=== PATIENT | female | born 1960 | race Caucasian/White ===

== ENCOUNTER 2016-12-03 12:43 | Emergency (ER) | payer BC ==
[~2016-12-03] VITALS: Ht 170.2 cm; Wt 66.0 kg
[~2016-12-03 12:43] MED LIST: CLON0.5T3 PO; DTRSR4 PO; LAMO100T16 PO; LANS30CA63 PO; ONDA4TAB46 PO; SUMA25TA12 PO; TRAZ50TA35 PO; VENL75CA73 PO
[2016-12-03 12:49] VITALS: BP 158/76; TEMP 36.4; Ht 170.2 cm; Wt 66.0 kg
[2016-12-03 13:35] VITALS: PULSE 73; O2SAT 95
[2016-12-03] MEDS ORDERED: CARI1CAP PO (13:36)
--- NOTE | 2016-12-03 16:10 | EMERGENCY ROOM VISIT NOTE ---
History First contact with patient: 12:48 Chief Complaint: FALL Stated Complaint: FALL History of Present Illness The patient is a 56 year old female who presents to the Emergency Room with complaints of injuries after she tripped and fell onto This. The patient reports that she tripped on an uneven sidewalk. She reports falling face first , causing an abrasion to her nose and upper lip she denies any other orthopedic injuries, headache, neck pain, back pain, chest pain or abdominal pain. She denies any loss of consciousness, nausea, blurred vision or significant headache. Tetanus immunization is up-to-date. Review of Systems 10 system review was performed and was negative except for pertinent positives and negatives as indicated in history of present illness Past Medical/Surgical History Medical Problems: (1) Acid reflux (2) Depression (3) Headache (4) IBS (irritable bowel syndrome) (5) Kidney stone (6) Overactive bladder Family History FHx: heart disease Kidney stones Social History Smoking Status: Never Smoker Alcohol Use: none Marital Status: Housing Status: lives alone Occupation Status: employed Current/Historical Medications Scheduled Cariprazine HCl (Vraylar), 1.5 MG PO DAILY Scheduled PRN Clonazepam (Klonopin), 0.25 MG PO HS PRN for Sleep Trazodone Hcl (Trazodone), 25 MG PO HS PRN for Sleep Physical Exam Vital Signs Date Time Temp Pulse Resp B/P (MAP) Pulse Ox O2 Delivery O2 Flow Rate FiO2 12/03/16 13:35 73 16 95 12/03/16 12:49 36.4 85 16 158/76 97 Room Air Physical Exam CONSTITUTIONAL: Healthy and well nourished. Alert and oriented X 3 with a flat affect. GCS 15. HEENT: Examination shows small abrasions to the bridge of the nose and upper lip region. Pupils equal, round and reactive. No epistaxis, subconjunctival hemorrhage, hemotympanum, raccoon's eyes or Ernst sign. No tenderness to palpation of the facial bones. OROPHARYNX: No dental trauma or other intraoral lacerations noted. There is no upper lip wet mucosal laceration. NECK: Full active range of motion without discomfort. RESPIRATORY: Clear to auscultation bilaterally with no wheezing, crackles, rhonchi or stridor. CARDIOVASCULAR: Regular rate and rhythm with no murmurs, rubs or gallops. GASTROINTESTINAL: Bowel sounds present in all quadrants. Soft and nontender to palpation. MUSCULOSKELETAL: Full range of motion of all joints without discomfort. INTEGUMENTARY: No rash or other significant dermatologic conditions noted. NEUROLOGIC: Cranial nerves II-XII grossly intact. No focal neurologic deficits noted. Medical Decision & Procedures ED Course Patient history and physical exam were performed. Nurse's notes were reviewed. Vital signs were reviewed and were normal. The patient does not appear in any acute distress. Other than abrasions to her nose and upper lip, she denies any other symptoms. The patient was provided an ice pack for her nose and lip. She was encouraged to take ibuprofen or Tylenol as needed for pain. She was instructed to return for any progressively worsening symptoms such as developing severe headache, persistent vomiting, coordination problems or other neurologic symptoms. She was encouraged to follow-up with her PCP as needed for further management. The patient voiced understanding of all discharge instructions, was happy with plan of care, and denied any significant discomfort at the conclusion of my exam. Medical Decision Head Trauma GCS Score: 15 Medication Reconcilliation Current Medication List: was personally reviewed by ca Blood Pressure Screening Patient's blood pressure: Normal blood pressure Impression Primary Impression: Facial abrasion Additional Impression: Fall from slip, trip, or stumble Departure Information Dispostion Home / Self-Care Condition [employer] Forms HOME CARE DOCUMENTATION FORM, IMPORTANT VISIT INFORMATION Patient Instructions My [facility] Additional Instructions Intermittently apply ice for swelling. Ibuprofen or Tylenol as needed for pain. Follow-up with your family doctor as needed for further management. Return to the emergency department for any progressively worsening symptoms. Problem Qualifiers Primary Impression: Facial abrasion Encounter type: initial encounter Qualified Codes: S00.81XA - Abrasion of other part of head, initial encounter Additional Impression: Fall from slip, trip, or stumble Encounter type: initial encounter Qualified Codes: W01.0XXA - Fall on same level from slipping, tripping and stumbling without subsequent striking against object, initial encounter
== END 2016-12-03 13:36 | disposition home or self-care (01) ==
LOC: EDBD 12:43 → C.EDD 12:46
DX: S00.81XA Abrasion of other part of head, initial encounter (principal); W01.0XXA Fall on same level from slipping, tripping and stumbling without subsequent striking against object, initial encounter; K21.9 Gastro-esophageal reflux disease without esophagitis; F32.9 Major depressive disorder, single episode, unspecified; K58.9 Irritable bowel syndrome, unspecified; Z87.442 Personal history of urinary calculi; N32.81 Overactive bladder; Z84.1 Family history of disorders of kidney and ureter; Z79.899 Other long term (current) drug therapy